=== PATIENT | female | born 1965 | race Caucasian/White ===

== ENCOUNTER 2024-12-19 19:28 | Emergency (ER) | payer OTHER ==
[2024-12-19 19:36] VITALS: BMI 25.9
[2024-12-19] MEDS ORDERED: methylPREDNISolone NA SUCC 125 MG/2 ML VIAL ONE (20:13)
[2024-12-19] MEDS ORDERED: ALBUTEROL SO4 2.5/IPRATROPIUM 0.5 INH SOL 3 ML VIAL.NEB. NEB ONE (20:13)
[2024-12-19] MEDS: ALBUTEROL SO4 2.5/IPRATROPIUM 0.5 INH SOL 3 ML VIAL.NEB. NEB ONE ×2 (20:28→22:16)
[2024-12-19] MEDS: methylPREDNISolone NA SUCC 125 MG/2 ML VIAL IVPB ONE (20:28)
[2024-12-19 20:38] LABS: ABSOLUTE IMMATURE GRANULOCYTES 0.01 x10^3/uL (0.0-0.031); BASOPHILS # 0.02 x10^3/uL (0.01-0.08); EOSINOPHIL % 6.3 % (0.7-5.8); EOSINOPHILS # 0.38 x10^3/uL (0.04-0.36); MCHC 31.7 g/dl (32.2-35.5); MEAN CELL VOLUME 88.6 fl (79.4-94.8); MEAN PLT VOLUME 9.1 fl (9.4-12.3); MONOCYTE # 0.43 x10^3/uL (0.24-0.86); MONOCYTE % 7.1 % (4.7-12.5); RDW 14.3 % (12.3-16.6)
[2024-12-19 20:51] LABS: URIC ACID CRYSTALS FEW /hpf (NONE SEEN)
[2024-12-19 20:52] LABS: ALK PHOS 71.0 U/L (45-117); CO2 28.0 mmol/L (21-32); CREATININE 0.8 mg/dl (0.6-1.3); GLUCOSE,RANDOM 86.0 mg/dl (74-106); SGOT/AST 43.0 U/L (15-37); SGPT/ALT 72.0 U/L (7-52); TOT PROT 7.0 g/dl (6.4-8.2)
[2024-12-19] MEDS ORDERED: SIMETHICONE 80 MG TAB.CHEW (FP) ONE (21:30)
[2024-12-19] MEDS ORDERED: FAMOTIDINE 20 MG/50 ML IVPB 20 MG/50 ML MG IVPB ONE (21:30)
[2024-12-19] MEDS: FAMOTIDINE 20 MG/50 ML IVPB 20 MG/50 ML MG IVPB ONE (21:30)
[2024-12-19] MEDS ORDERED: ACETAMINOPHEN INJECTION 100 ML ONE (21:30)
[2024-12-19] MEDS: SIMETHICONE 80 MG TAB.CHEW (FP) PO ONE (21:35)
[2024-12-19] MEDS: ACETAMINOPHEN 1000 MG/100 ML BAG IVPB ONE (21:41)
[2024-12-19] MEDS ORDERED: NITROGLYCERIN SUBLINGUAL 1/150 0.4 MG TAB ONE (22:00)
[2024-12-19] MEDS: NITROGLYCERIN SUBLINGUAL 1/150 0.4 MG TAB SL ONE (22:02)
[2024-12-19 22:09] VITALS: TEMP 98.8
[2024-12-19 22:15] VITALS: BP 125/87; PULSE 65; RESP 14
[2024-12-19 22:34] LABS: INR 0.95 (0.83-1.09); PROTHROMBIN TIME (PATIENT) 10.6 SEC (9.7-13.0)
[2024-12-19 22:36] LABS: ACTIVATED PTT 28.8 SECONDS (25.2-36.5)
[2024-12-20 00:33] LABS: HCV DIAGNOSTIC IN-HOUSE W/RFLX NON-REACTIVE (NONREACTIVE); HIV INTERPRETATION NEGATIVE (NEGATIVE)
== END 2024-12-20 01:05 | disposition home or self-care (01) ==
LOC: FER 19:28
PROC: 3E033GC Introduction of Other Therapeutic Substance into Peripheral Vein, Percutaneous Approach (ICD-10-PCS; principal; 2024-12-19)
PROC: 3E033NZ Introduction of Analgesics, Hypnotics, Sedatives into Peripheral Vein, Percutaneous Approach (ICD-10-PCS; 2024-12-19)
PROC: 3E033GC Introduction of Other Therapeutic Substance into Peripheral Vein, Percutaneous Approach (ICD-10-PCS; 2024-12-19)
PROC: 3E0F7GC Introduction of Other Therapeutic Substance into Respiratory Tract, Via Natural or Artificial Opening (ICD-10-PCS; 2024-12-19)
PROC: 3E0F7GC Introduction of Other Therapeutic Substance into Respiratory Tract, Via Natural or Artificial Opening (ICD-10-PCS; 2024-12-19)
DX: J45.41 Moderate persistent asthma with (acute) exacerbation (principal); M94.0 Chondrocostal junction syndrome [Tietze]; R06.02 Shortness of breath
CPT/HCPCS: 36415; 71046-TC-FY; 71275-TC; 80053; 81003; 81015; 83690; 84484; 85025; 85379; 85610; 85730; 86803; 87389; 87637-QW; 93005; 99285-25; Q9967